=== PATIENT | male | born 1950 | race Caucasian/White ===

== ENCOUNTER 2017-10-12 20:23 | Emergency (ER) | payer BC, MEDICARE ==
[~2017-10-12] VITALS: Ht 188 cm; Wt 97.5 kg
[~2017-10-12 20:23] MED LIST: ALREX5 ML OPTH; ASPIRIN EC325 MG PO; ATORVASTATIN CA20 MG PO; BUSPIRONE HCL10 MG PO; DORZOLAMIDE-TIM10 ML OPTH; FLUOXETINE HCL20 MG PO; IBUPROFEN600 MG PO; LORAZEPAM0.5 MG PO
[2017-10-12] MEDS ORDERED: MULTI VITAMIN1 EACH (20:37)
[2017-10-12] MEDS ORDERED: DOXYCYCLINE HY100 MG PO ×2 (22:14→23:07)
== END 2017-10-12 23:09 | disposition home or self-care (01) ==
LOC: ED 20:23
DX: L03.116 Cellulitis of left lower limb (principal); F17.200 Nicotine dependence, unspecified, uncomplicated; Z90.49 Acquired absence of other specified parts of digestive tract; Z98.890 Other specified postprocedural states; Z98.61 Coronary angioplasty status; Z88.0 Allergy status to penicillin; Z88.2 Allergy status to sulfonamides; Z79.899 Other long term (current) drug therapy; Z79.82 Long term (current) use of aspirin; Z87.442 Personal history of urinary calculi
CPT/HCPCS: 80053; 85025; 85379; 93971; 96374; 99284; J1885

== ENCOUNTER → 2018-09-26 | Emergency (ER) | payer BC, MEDICARE ==
[~2018-09-26] VITALS: Ht 188 cm; Wt 86.2 kg
[~2018-09-26] MED LIST changes: +DOXYCYCLINE HY100 MG PO; +MULTI VITAMIN1 EACH
--- OUTSIDE RECORDS SUMMARY | ~2018-09-26 | XMS | Clinical Summary ---
Demographics + + + | Address | [address] | | | [place] [address] | + + + | Home Phone | | + + + | Preferred Language | Unknown | + + + | Marital Status | | + + + | Tenriism Affiliation | 1077 | + + + | Race | Unknown | + + + | Ethnic Group | Unknown | + + + Author + + + | Author | [facility] | + + + | Organization | [facility] | + + + | Address | Unknown | + + + | Phone | Unavailable | + + + Support + + + + + | Name | Relationship | Address | Phone | + + + + + | Danielle Mcneil | ECON | [address] | | | | | [place] | | | | | [address] | | + + + + + Care Team Providers + +------+ + | Care Scientific Advisor Name | Role | Phone | + +------+ + PP | Unavailable | + +------+ + Allergies Not on File Current Medications Not on file Active Problems Not on file Social History + +-------+ +--------+------+ | Tobacco Use | Types | Packs/Day | Years | Date | | | | | Used | | + +-------+ +--------+------+ | Never Assessed | | | | | + +-------+ +--------+------+ + + + | Sex Assigned at | Date Recorded | | | | + + + | Not on file | | + + + Plan of Treatment Not on file Results Not on filefrom Last 3 Months"
--- OUTSIDE RECORDS SUMMARY | ~2018-09-26 | XMS | Clinical Summary ---
Demographics + + + | Address | [address] | | | [place] [address] | + + + | Home Phone | | + + + | Preferred Language | Unknown | + + + | Marital Status | | + + + | Nondenominational Affiliation | 1077 | + + + | Race | Unknown | + + + | Ethnic Group | Unknown | + + + Author + + + | Author | [facility] | + + + | Organization | [facility] | + + + | Address | Unknown | + + + | Phone | Unavailable | + + + Support + + + + + | Name | Relationship | Address | Phone | + + + + + | Danielle Mcneil | ECON | [address] | | | | | [place] | | | | | [address] | | + + + + + Care Team Providers + +------+ + | Care Outdoor Studies Professor Name | Role | Phone | + [...]
--- NOTE | 2018-09-27 12:48 | EKG ---
[facility] [address] [facility] [place], [place] [address] Signed Normal sinus rhythm Anteroseptal infarct , age undetermined T wave abnormality, consider lateral ischemia Abnormal ECG No previous ECGs available Confirmed by SHARON LUNA DO ([id number]) on 09/27/2018 12:48:22 PM Electronically Signed By: SHARON LUNA DO 09/27/18 1248 PATIENT NAME: NEW MIRZA Jose Luis Electrocardiogram DATE OF : 48 PHYSICIAN: SHARON LUNA DO REPORT #: [id number] REPORT IS CONFIDENTIAL AND NOT TO BE RELEASED WITHOUT AUTHORIZATION
== END ==
LOC: ED 19:45
DX: R20.2 Paresthesia of skin (principal); F17.200 Nicotine dependence, unspecified, uncomplicated; Z88.0 Allergy status to penicillin; Z88.2 Allergy status to sulfonamides; Z79.899 Other long term (current) drug therapy; Z79.82 Long term (current) use of aspirin
CPT/HCPCS: 70450; 80053; 82607; 82746; 84443; 84484; 85025; 93005; 93010; 99284

== ENCOUNTER 2022-07-07 20:40 | Emergency (ER) | payer MEDICARE, BC ==
[~2022-07-07] VITALS: Ht 188 cm; Wt 86.2 kg
[~2022-07-07 20:40] MED LIST changes: +CLEOCIN HCL300 MG PO; +CLOPIDOGREL75 MG PO; +LOSARTAN POTASS25 MG PO
[2022-07-07] MEDS ORDERED: TAMSULOSIN HCL0.4 MG PO (21:34)
[2022-07-07] MEDS ORDERED: METOPROLOL SUCC50 MG PO (21:34)
[2022-07-07] MEDS ORDERED: NITROSTAT0.4 MG SL (21:35)
--- NOTE | 2022-07-09 15:29 | EKG ---
[facility] [address] [facility] [place] [address] Signed Atrial-paced rhythm Low voltage QRS Cannot rule out Anteroseptal infarct (cited on or before 26-SEP-2018) T wave abnormality, consider lateral ischemia Abnormal ECG When compared with ECG of 26-SEP-2018 20:11, Electronic atrial pacemaker has replaced Sinus rhythm Confirmed by ERNESTINE RAMIREZ MD ([id number]) on 07/09/2022 3:29:13 PM Electronically Signed By: ERNESTINE RAMIREZ MD 07/09/22 1529 PATIENT NAME: NEW MIRZA Electrocardiogram DATE OF : 48 PHYSICIAN: ERNESTINE RAMIREZ MD REPORT #: [id number] REPORT IS CONFIDENTIAL AND NOT TO BE RELEASED WITHOUT AUTHORIZATION
== END 2022-07-07 23:11 | disposition short-term general hospital (02) ==
LOC: ED 20:40
DX: I63.9 Cerebral infarction, unspecified (principal); F17.200 Nicotine dependence, unspecified, uncomplicated; I10 Essential (primary) hypertension; E78.5 Hyperlipidemia, unspecified; I25.10 Atherosclerotic heart disease of native coronary artery without angina pectoris; Z79.02 Long term (current) use of antithrombotics/antiplatelets
CPT/HCPCS: 36415; 70450; 70496; 70498; 71045; 80053; 81001; 84484; 85025; 85610; 85730; 87502; 93005; 93010; 99285-25; C9803; G0480; J3101; Q3014; Q9967; U0003